=== PATIENT | female | born 1980 | race Caucasian/White ===

== ENCOUNTER 2023-07-21 12:49 | Emergency (ER) | payer SELFPAY ==
[~2023-07-21] VITALS: Ht 160 cm; Wt 82.0 kg
[2023-07-21 13:15] VITALS: BP 107/62; PULSE 77; RESP 12; TEMP 98.8; O2SAT 97
[2023-07-21] MEDS: SODIUM CHLORIDE 0.9% 1,000 ML IV ONE (14:44)
[2023-07-21 15:32] LABS: BASOPHILS % 0.9 % (0.0-2.0); EOSINOPHILS % 0.2 % (0.0-5.0); HEMATOCRIT. 38.8 % (36.0-48.0); HEMOGLOBIN. 13.2 g/dL (12.0-16.0); LYMPHOCYTES % 44.9 % (20.0-50.0); MEAN CORPUSCULAR HEMOGLOBIN 31.1 pg (28.0-32.0); MEAN CORPUSCULAR HGB CONC 33.9 g/dL (31.0-37.0); MEAN CORPUSCULAR VOLUME 91.7 fL (81.0-99.0); MONOCYTES % 6.6 % (2.0-8.0); NEUTROPHILS % 47.4 % (40.0-76.0); PLATELET 306 x1000/uL (130-400); RED BLOOD CELL COUNT 4.24 mill/uL (4.2-5.4); RED CELL DISTRIBUTION WIDTH 14.3 % (11.6-14.6); WHITE BLOOD COUNT 5.3 x1000/uL (4.5-11.0)
[2023-07-21 15:38] LABS: CHLORIDE 109 mEq/L (98-107); POTASSIUM 3.5 mEq/L (3.5-5.1); SODIUM 142 mEq/L (136-145)
[2023-07-21 15:39] LABS: CALCIUM 9.3 mg/dL (8.7-10.4); CARBON DIOXIDE 29 mEq/L (21-32)
[2023-07-21 15:42] LABS: PROTHROMBIN TIME 10.9 sec (9.6-11.0)
[2023-07-21 15:44] LABS: CREATININE 0.5 mg/dL (0.6-1.0); GLUCOSE 94 mg/dL (70-105); UREA NITROGEN BLOOD 6 mg/dL (9-23)
[2023-07-21 15:45] LABS: ALANINE AMINOTRANSFERASE 29 IU/L (10-49)
[2023-07-21 15:46] LABS: ALBUMIN 4.1 g/dL (3.2-4.8); ASPARTATE AMINOTRANSFERASE 45 IU/L (<34); BILIRUBIN DIRECT 0.1 mg/dL (<=3.0); BILIRUBIN TOTAL 0.4 mg/dL (0.1-1.0); PROTEIN TOTAL 7.3 g/dL (6.0-8.3)
== END 2023-07-21 17:48 | disposition home or self-care (01) ==
LOC: ER 13:34
DX: G92.9 Unspecified toxic encephalopathy (principal); F10.129 Alcohol abuse with intoxication, unspecified; F32.A Depression, unspecified; Y90.8 Blood alcohol level of 240 mg/100 ml or more
CPT/HCPCS: 80076; 80048; 80320; 85025; 85610; 86850; 86900; 86901; 36415; 71045; 96360; 99284; J7030; Z7610 ×2; G0480